=== PATIENT | male | born 1990 | race Caucasian/White ===

== ENCOUNTER 2022-03-10 10:19 | Emergency (ER) | payer OTHER ==
--- NOTE | 2022-03-10 12:08 | RAD REPORT ---
EXAM DESCRIPTION: RAD - Shoulder Left 2 View - 03/10/2022 11:12 am CLINICAL HISTORY: PAIN COMPARISON: No comparisons FINDINGS: No fracture or dislocation seen.
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
[2022-03-10 13:08] VITALS: TEMP 99.3
[2022-03-10 13:11] VITALS: BP 124/80; O2SAT 99
== END 2022-03-10 13:03 | disposition home or self-care (01) ==
LOC: ER 10:19
DX: M25.512 Pain in left shoulder (principal); V59.40XA Driver of pick-up truck or van injured in collision with unspecified motor vehicles in traffic accident, initial encounter
CPT/HCPCS: 99284